=== PATIENT | female | born 1940 | race Caucasian/White ===

== ENCOUNTER 2020-02-05 15:43 | Inpatient (IN) ==
[2020-02-05 19:41] LABS: Basophils % 0.5 % (0.0-0.8); Hematocrit 41.1 VOL% (35.7-47.0); Hemoglobin 13.6 GM/DL (12.0-16.0); Immature Granulocytes % 0.5 %; Immature Granulocytes Absolute 0.03 #; Lymphocytes % 17.2 % (21.3-54.2); Mean Corpuscular HGB Conc 33.1 GM/DL (32-36); Mean Corpuscular Volume 88.2 FL (87-102); Mean Platelet Volume 11.3 FL (9.6-12.0); Monocytes % 8.8 % (1.7-12.7); Platelet Count 142 T/CUMM (130-400); Red Blood Count 4.66 MC/CUMM (3.8-5.5); Red Cell Distribution Width 13.4 % (9.3-17.3); White Blood Count 5.8 T/CUMM (4-12)
[2020-02-05 19:53] LABS: Calcium 8.5 MG/DL (8.5-10.1); Osmolality,Calculated 270.5 MOS/KG (273-304)
[2020-02-05] MEDS ORDERED: cefTRIAXone 1,000 MG in SODIUM CHLORIDE 0.9% 100 ML IV STA (20:09)
[2020-02-05] MEDS ORDERED: AZITHROMYCIN INJ 500 MG in SODIUM CHLORIDE 0.9% 250 ML IV STA (20:09)
[2020-02-05] MEDS ORDERED: cefTRIAXone 1,000 MG VIAL ONE (20:11)
[2020-02-05] MEDS ORDERED: diphenhydrAMINE CAP 25 MG CAPSULE PO PRN (22:01)
[2020-02-05] MEDS ORDERED: GLUCAGON 1 MG VIAL IM PRN (22:01)
[2020-02-05] MEDS ORDERED: DEXTROSE 50% 25 GM/50 ML VIAL IV PRN (22:01)
[2020-02-05] MEDS ORDERED: ACETAMINOPHEN 325 MG TABLET PO PRN (22:01)
[2020-02-05] MEDS ORDERED: guaiFENesin/DM ER 600-30 MG TABLET PO PRN (22:01)
[2020-02-05] MEDS ORDERED: hydrALAZINE 20 MG/1 ML VIAL IV PRN (22:01)
[2020-02-05] MEDS ORDERED: NICOTINE 21 MG/24 HR PATCH TRANSDERM PRN (22:01)
[2020-02-05] MEDS ORDERED: ALUMINUM/MAGNES/SIMETH MAX STR 30 ML UDCUP PO PRN (22:01)
[2020-02-05] MEDS ORDERED: BISACODYL 5 MG TABLET PO PRN (22:01)
[2020-02-05] MEDS ORDERED: DOCUSATE SODIUM 100 MG CAPSULE PO PRN (22:01)
[2020-02-05] MEDS ORDERED: SIMETHICONE CHEW 125 MG TABLET PO PRN (22:01)
[2020-02-05] MEDS ORDERED: AZITHROMYCIN INJ 500 MG in SODIUM CHLORIDE 0.9% 250 ML IV SCH (22:30)
[2020-02-05] MEDS ORDERED: ALBUTEROL INHALER 18 GM INH PRN (22:35)
[2020-02-06] MEDS: SODIUM CHLORIDE 0.9% 1,000 ML IV SCH ×2 (02:26→14:42)
[2020-02-06] MEDS: ALBUTEROL INHALER 18 GM INH SCH ×5 (02:27→20:52)
[2020-02-06 05:42] LABS: Basophils % 0.5 % (0.0-0.8); Eosinophils # 0.1 10*3/uL (0.0-0.87); Eosinophils % 2.2 % (0.00-10.9); Hematocrit 39.8 VOL% (35.7-47.0); Hemoglobin 12.9 GM/DL (12.0-16.0); Immature Granulocytes % 0.5 %; Immature Granulocytes Absolute 0.03 #; Lymphocytes # 1.6 10*3/uL (1.4-4.0); Lymphocytes % 26.9 % (21.3-54.2); Mean Corpuscular HGB Conc 32.4 GM/DL (32-36); Mean Corpuscular Volume 90.2 FL (87-102); Mean Platelet Volume 11.3 FL (9.6-12.0); Monocytes % 11.9 % (1.7-12.7); Platelet Count 123 T/CUMM (130-400); Red Blood Count 4.41 MC/CUMM (3.8-5.5); Red Cell Distribution Width 13.2 % (9.3-17.3)
[2020-02-06 05:59] LABS: Calcium 8.5 MG/DL (8.5-10.1); Osmolality,Calculated 278.7 MOS/KG (273-304)
[2020-02-06 06:02] LABS: Hypochromasia Slight; Microcytosis Slight
[2020-02-06 06:03] LABS: Platelet Estimate Normal
[2020-02-06] MEDS: DEXAMETHASONE 10 MG/1 ML VIAL IV SCH (09:05)
[2020-02-06] MEDS: HEPARIN 5,000 UNIT/1 ML VIAL SUBCUT SCH ×2 (09:05→20:51)
[2020-02-06] MEDS: AZITHROMYCIN 250 MG TABLET PO SCH (09:06)
[2020-02-06] MEDS: PANTOPRAZOLE 40 MG TABLET PO SCH (09:06)
[2020-02-06] MEDS: amLODIPine 5 MG TABLET PO SCH ×2 (09:06→20:49)
[2020-02-06] MEDS: ESCITALOPRAM 10 MG TABLET PO SCH (09:06)
[2020-02-06] MEDS ORDERED: CETIRIZINE 10 MG TABLET PO PRN ×2 (09:19)
[2020-02-06] MEDS ORDERED: guaiFENesin 200 MG/10 ML UDCUP PO PRN (09:19)
[2020-02-06] MEDS: CETIRIZINE 10 MG TABLET PO SCH (10:47)
[2020-02-06] MEDS: ASCORBIC ACID 500 MG TABLET PO SCH ×2 (10:47→20:50)
[2020-02-06] MEDS: ZINC SULFATE 220 MG CAPSULE PO SCH (10:47)
[2020-02-06] MEDS ORDERED: METOPROLOL TARTRATE 25 MG TABLET PO SCH (19:00)
[2020-02-06] MEDS: cefTRIAXone 1,000 MG in SYRINGE 1 EACH IV SCH (20:49)
[2020-02-06] MEDS: ASPIRIN EC 81 MG TABLET PO SCH (20:49)
[2020-02-06] MEDS: SIMVASTATIN 20 MG TABLET PO SCH (20:50)
[2020-02-07] MEDS: guaiFENesin 200 MG/10 ML UDCUP PO PRN ×3 (00:37→20:26)
[2020-02-07] MEDS: ALBUTEROL INHALER 18 GM INH SCH ×6 (00:40→20:25)
[2020-02-07 06:32] LABS: Basophils % 0.1 % (0.0-0.8); Hematocrit 38.9 VOL% (35.7-47.0); Hemoglobin 12.5 GM/DL (12.0-16.0); Immature Granulocytes % 0.3 %; Immature Granulocytes Absolute 0.03 #; Lymphocytes % 11.2 % (21.3-54.2); Mean Corpuscular HGB Conc 32.1 GM/DL (32-36); Mean Corpuscular Volume 89.6 FL (87-102); Mean Platelet Volume 11.8 FL (9.6-12.0); Monocytes % 5.6 % (1.7-12.7); Neutrophils % 82.8 % (38.7-73.9); Platelet Count 118 T/CUMM (130-400); Red Blood Count 4.34 MC/CUMM (3.8-5.5); Red Cell Distribution Width 12.7 % (9.3-17.3); White Blood Count 8.6 T/CUMM (4-12)
[2020-02-07] MEDS: SODIUM CHLORIDE 0.9% 1,000 ML IV SCH (06:56)
[2020-02-07 07:00] LABS: Albumin 3.2 G/DL (3.4-5.0); Bilirubin,Total 0.8 MG/DL (0.2-1.0); Calcium 8.3 MG/DL (8.5-10.1); Osmolality,Calculated 275.7 MOS/KG (273-304); Total Protein 6.6 G/DL (6.4-8.3)
[2020-02-07 07:01] LABS: Risk Ratio 2.69; VLDL CHOLESTEROL 28.6 MG/DL
[2020-02-07 07:09] LABS: Hypochromasia Slight; Microcytosis Slight; Ovalocytes Slight
[2020-02-07] MEDS: ONDANSETRON 4 MG/2 ML VIAL IV PRN (08:16)
[2020-02-07] MEDS: HEPARIN 5,000 UNIT/1 ML VIAL SUBCUT SCH (08:16)
[2020-02-07] MEDS: DEXAMETHASONE 10 MG/1 ML VIAL IV SCH (08:16)
[2020-02-07] MEDS: AZITHROMYCIN 250 MG TABLET PO SCH (08:17)
[2020-02-07] MEDS: ESCITALOPRAM 10 MG TABLET PO SCH (08:18)
[2020-02-07] MEDS: ZINC SULFATE 220 MG CAPSULE PO SCH (08:18)
[2020-02-07] MEDS: PANTOPRAZOLE 40 MG TABLET PO SCH (08:18)
[2020-02-07] MEDS: amLODIPine 5 MG TABLET PO SCH ×2 (08:18→20:24)
[2020-02-07] MEDS: ASCORBIC ACID 500 MG TABLET PO SCH ×2 (08:18→20:24)
[2020-02-07] MEDS: CETIRIZINE 10 MG TABLET PO SCH (08:18)
[2020-02-07] MEDS ORDERED: FLUTICASONE 50 MCG NASAL SPRAY 16 GM BOTTLE BOTH NARES PRN (10:28)
[2020-02-07] MEDS: LEVOTHYROXINE 88 MCG TABLET PO SCH (12:55)
[2020-02-07] MEDS: MELOXICAM 7.5 MG TABLET PO SCH (12:55)
[2020-02-07] MEDS: MONTELUKAST 10 MG TABLET PO SCH (12:55)
[2020-02-07] MEDS: METOPROLOL TARTRATE 25 MG TABLET PO SCH ×2 (12:55→20:24)
[2020-02-07] MEDS: AZELASTINE NASAL 137 MCG/SPRAY 30 ML BOTTLE BOTH NARES SCH ×2 (12:55→20:40)
[2020-02-07] MEDS: ASPIRIN EC 81 MG TABLET PO SCH (20:24)
[2020-02-07] MEDS: cefTRIAXone 1,000 MG in SYRINGE 1 EACH IV SCH (20:25)
[2020-02-07] MEDS: SIMVASTATIN 20 MG TABLET PO SCH (20:25)
[2020-02-07] MEDS: ENOXAPARIN 40 MG/0.4 ML SYRINGE SUBCUT SCH (20:26)
[2020-02-08] MEDS: ALBUTEROL INHALER 18 GM INH SCH ×7 (00:27→23:10)
[2020-02-08] MEDS: guaiFENesin 200 MG/10 ML UDCUP PO PRN (01:15)
[2020-02-08 05:56] LABS: Basophils % 0.1 % (0.0-0.8); Hematocrit 39.9 VOL% (35.7-47.0); Hemoglobin 13.2 GM/DL (12.0-16.0); Immature Granulocytes % 0.6 %; Immature Granulocytes Absolute 0.06 #; Lymphocytes # 1.2 10*3/uL (1.4-4.0); Lymphocytes % 12.1 % (21.3-54.2); Mean Corpuscular HGB Conc 33.1 GM/DL (32-36); Mean Corpuscular Volume 87.7 FL (87-102); Monocytes % 5.7 % (1.7-12.7); Neutrophils % 81.5 % (38.7-73.9); Platelet Count 159 T/CUMM (130-400); Red Blood Count 4.55 MC/CUMM (3.8-5.5); Red Cell Distribution Width 12.9 % (9.3-17.3); White Blood Count 9.8 T/CUMM (4-12)
[2020-02-08 06:13] LABS: Albumin 3.4 G/DL (3.4-5.0); Bilirubin,Total 0.9 MG/DL (0.2-1.0); Calcium 8.8 MG/DL (8.5-10.1); Osmolality,Calculated 276.7 MOS/KG (273-304); Total Protein 7.2 G/DL (6.4-8.3)
[2020-02-08] MEDS: ONDANSETRON 4 MG/2 ML VIAL IV PRN (08:47)
[2020-02-08] MEDS: PANTOPRAZOLE 40 MG TABLET PO SCH (08:47)
[2020-02-08] MEDS: LEVOTHYROXINE 88 MCG TABLET PO SCH (08:47)
[2020-02-08] MEDS: MELOXICAM 7.5 MG TABLET PO SCH (08:47)
[2020-02-08] MEDS: MONTELUKAST 10 MG TABLET PO SCH (08:48)
[2020-02-08] MEDS: ZINC SULFATE 220 MG CAPSULE PO SCH (08:48)
[2020-02-08] MEDS: AZELASTINE NASAL 137 MCG/SPRAY 30 ML BOTTLE BOTH NARES SCH ×2 (08:48→20:31)
[2020-02-08] MEDS: AZITHROMYCIN 250 MG TABLET PO SCH (08:48)
[2020-02-08] MEDS: amLODIPine 5 MG TABLET PO SCH ×2 (08:48→20:29)
[2020-02-08] MEDS: ASCORBIC ACID 500 MG TABLET PO SCH ×2 (08:48→20:29)
[2020-02-08] MEDS: ESCITALOPRAM 10 MG TABLET PO SCH (08:48)
[2020-02-08] MEDS: DEXAMETHASONE 10 MG/1 ML VIAL IV SCH (08:49)
[2020-02-08] MEDS: CETIRIZINE 10 MG TABLET PO SCH (08:49)
[2020-02-08] MEDS: METOPROLOL TARTRATE 25 MG TABLET PO SCH ×2 (08:50→20:29)
[2020-02-08] MEDS: methylPREDNISolone SOD SUC 40 MG/1 ML VIAL IV SCH ×3 (12:18→23:10)
[2020-02-08] MEDS: SIMVASTATIN 20 MG TABLET PO SCH (20:29)
[2020-02-08] MEDS: ASPIRIN EC 81 MG TABLET PO SCH (20:29)
[2020-02-08] MEDS: cefTRIAXone 1,000 MG in SYRINGE 1 EACH IV SCH (20:32)
[2020-02-08] MEDS: ENOXAPARIN 40 MG/0.4 ML SYRINGE SUBCUT SCH (20:33)
[2020-02-09] MEDS: ALBUTEROL INHALER 18 GM INH SCH ×6 (03:02→23:54)
[2020-02-09] MEDS: methylPREDNISolone SOD SUC 40 MG/1 ML VIAL IV SCH ×4 (06:05→22:16)
[2020-02-09 06:36] LABS: Basophils % 0.1 % (0.0-0.8); Hematocrit 36.1 VOL% (35.7-47.0); Hemoglobin 12.1 GM/DL (12.0-16.0); Immature Granulocytes % 0.8 %; Immature Granulocytes Absolute 0.08 #; Lymphocytes # 0.9 10*3/uL (1.4-4.0); Mean Corpuscular HGB Conc 33.5 GM/DL (32-36); Mean Corpuscular Volume 86.4 FL (87-102); Mean Platelet Volume 11.6 FL (9.6-12.0); Neutrophils % 86.1 % (38.7-73.9); Platelet Count 160 T/CUMM (130-400); Red Blood Count 4.18 MC/CUMM (3.8-5.5); Red Cell Distribution Width 12.9 % (9.3-17.3); White Blood Count 9.4 T/CUMM (4-12)
[2020-02-09 07:01] LABS: Albumin 2.8 G/DL (3.4-5.0); Bilirubin,Direct 0.14 MG/DL (0.0-0.20); Bilirubin,Total 1.1 MG/DL (0.2-1.0); Calcium 8.6 MG/DL (8.5-10.1); Ferritin 232.4 ng/ml (8-252); Total Protein 6.5 G/DL (6.4-8.3)
[2020-02-09] MEDS: AZITHROMYCIN 250 MG TABLET PO SCH (09:57)
[2020-02-09] MEDS: PANTOPRAZOLE 40 MG TABLET PO SCH (09:58)
[2020-02-09] MEDS: LEVOTHYROXINE 88 MCG TABLET PO SCH (09:58)
[2020-02-09] MEDS: MONTELUKAST 10 MG TABLET PO SCH (09:58)
[2020-02-09] MEDS: AZELASTINE NASAL 137 MCG/SPRAY 30 ML BOTTLE BOTH NARES SCH ×2 (09:58→22:13)
[2020-02-09] MEDS: MELOXICAM 7.5 MG TABLET PO SCH (09:58)
[2020-02-09] MEDS: METOPROLOL TARTRATE 25 MG TABLET PO SCH ×2 (09:58→21:55)
[2020-02-09] MEDS: amLODIPine 5 MG TABLET PO SCH ×2 (09:58→21:55)
[2020-02-09] MEDS: ZINC SULFATE 220 MG CAPSULE PO SCH (09:58)
[2020-02-09] MEDS: ASCORBIC ACID 500 MG TABLET PO SCH ×2 (09:58→21:55)
[2020-02-09] MEDS: CETIRIZINE 10 MG TABLET PO SCH (09:58)
[2020-02-09] MEDS: ESCITALOPRAM 10 MG TABLET PO SCH (09:58)
[2020-02-09] MEDS: guaiFENesin 200 MG/10 ML UDCUP PO PRN (10:51)
[2020-02-09 11:18] LABS: Bacteria,Urine Occasional /HPF (Few); Bilirubin,Urine Negative (Negative); Blood, Urine Negative (Negative); Glucose,Urine (UA) 50 mg/dL (Negative); Hyaline Casts,Urine 3 /LPF (0-3); Ketones,Urine Negative (Negative); Mucus,Urine Occasional /LPF (Occasional); Nitrite,Urine Negative (Negative); Protein,Urine 30 MG/DL; Squamous Epithelial Cell,Urine Occasional /HPF (0-10); Urine Appearance CLEAR (Clear); Urine Color Yellow (Yellow); Urine Specific Gravity 1.019 (1.001-1.035); Urine Urobilinogen < 2.0 EU/DL (0.2-1.0); WBC,Urine <1 /HPF (0-6)
[2020-02-09] MEDS: INSULIN LISPRO 100 UNIT/ML SUBCUT SCH ×3 (12:26→22:13)
[2020-02-09] MEDS: AZITHROMYCIN INJ 500 MG in SODIUM CHLORIDE 0.9% 250 ML IV SCH (12:26)
[2020-02-09] MEDS ORDERED: SODIUM CHLORIDE 0.9% 1,000 ML IV PRN (12:48)
[2020-02-09] MEDS ORDERED: REMDESIVIR 200 MG in SODIUM CHLORIDE 0.9% 210 ML IV ONE (13:30)
[2020-02-09] MEDS: ONDANSETRON 4 MG/2 ML VIAL IV PRN (18:04)
[2020-02-09] MEDS: cefTRIAXone 1,000 MG in SYRINGE 1 EACH IV SCH (20:55)
[2020-02-09] MEDS: ASPIRIN EC 81 MG TABLET PO SCH (21:55)
[2020-02-09] MEDS: SIMVASTATIN 20 MG TABLET PO SCH (21:55)
[2020-02-09] MEDS: ENOXAPARIN 40 MG/0.4 ML SYRINGE SUBCUT SCH (22:14)
[2020-02-10] MEDS: ALBUTEROL INHALER 18 GM INH SCH ×6 (02:42→22:25)
[2020-02-10] MEDS: methylPREDNISolone SOD SUC 40 MG/1 ML VIAL IV SCH ×3 (05:10→20:55)
[2020-02-10] MEDS: INSULIN LISPRO 100 UNIT/ML SUBCUT SCH ×4 (08:54→20:55)
[2020-02-10] MEDS: ASCORBIC ACID 500 MG TABLET PO SCH ×2 (08:54→20:55)
[2020-02-10] MEDS: REMDESIVIR 100 MG in SODIUM CHLORIDE 0.9% 230 ML IV SCH (08:54)
[2020-02-10] MEDS: LEVOTHYROXINE 88 MCG TABLET PO SCH (08:54)
[2020-02-10] MEDS: ZINC SULFATE 220 MG CAPSULE PO SCH (08:55)
[2020-02-10] MEDS: ESCITALOPRAM 10 MG TABLET PO SCH (08:55)
[2020-02-10] MEDS: METOPROLOL TARTRATE 25 MG TABLET PO SCH ×2 (08:55→20:55)
[2020-02-10] MEDS: MELOXICAM 7.5 MG TABLET PO SCH (08:55)
[2020-02-10] MEDS: amLODIPine 5 MG TABLET PO SCH ×2 (08:55→20:55)
[2020-02-10] MEDS: AZELASTINE NASAL 137 MCG/SPRAY 30 ML BOTTLE BOTH NARES SCH ×2 (08:55→20:55)
[2020-02-10] MEDS: MONTELUKAST 10 MG TABLET PO SCH (08:55)
[2020-02-10] MEDS: PANTOPRAZOLE 40 MG TABLET PO SCH (08:55)
[2020-02-10] MEDS: CETIRIZINE 10 MG TABLET PO SCH (08:55)
[2020-02-10] MEDS: AZITHROMYCIN INJ 500 MG in SODIUM CHLORIDE 0.9% 250 ML IV SCH (12:26)
[2020-02-10] MEDS: ONDANSETRON 4 MG/2 ML VIAL IV PRN (14:25)
[2020-02-10] MEDS: ENOXAPARIN 40 MG/0.4 ML SYRINGE SUBCUT SCH (20:55)
[2020-02-10] MEDS: ZALEPLON 5 MG CAPSULE PO PRN (20:55)
[2020-02-10] MEDS: SIMVASTATIN 20 MG TABLET PO SCH (20:55)
[2020-02-10] MEDS: ASPIRIN EC 81 MG TABLET PO SCH (20:55)
[2020-02-10] MEDS: cefTRIAXone 1,000 MG in SYRINGE 1 EACH IV SCH (22:23)
[2020-02-11] MEDS: ALBUTEROL INHALER 18 GM INH SCH ×5 (03:44→18:06)
[2020-02-11 05:21] LABS: Basophils % 0.1 % (0.0-0.8); Hematocrit 37.1 VOL% (35.7-47.0); Hemoglobin 11.9 GM/DL (12.0-16.0); Immature Granulocytes % 1.3 %; Immature Granulocytes Absolute 0.15 #; Lymphocytes # 0.7 10*3/uL (1.4-4.0); Lymphocytes % 5.8 % (21.3-54.2); Mean Corpuscular HGB Conc 32.1 GM/DL (32-36); Mean Corpuscular Volume 88.5 FL (87-102); Mean Platelet Volume 11.8 FL (9.6-12.0); Neutrophils % 88.8 % (38.7-73.9); Platelet Count 189 T/CUMM (130-400); Red Blood Count 4.19 MC/CUMM (3.8-5.5); Red Cell Distribution Width 12.9 % (9.3-17.3); White Blood Count 11.1 T/CUMM (4-12)
[2020-02-11] MEDS: methylPREDNISolone SOD SUC 40 MG/1 ML VIAL IV SCH ×3 (05:46→21:06)
[2020-02-11 05:55] LABS: Albumin 2.6 G/DL (3.4-5.0); Bilirubin,Direct 0.13 MG/DL (0.0-0.20); Bilirubin,Indirect 0.4 MG/DL (0.0-1.0); Bilirubin,Total 0.5 MG/DL (0.2-1.0); Calcium 8.4 MG/DL (8.5-10.1); Ferritin 217.9 ng/ml (8-252); Total Protein 6.2 G/DL (6.4-8.3)
[2020-02-11] MEDS: INSULIN LISPRO 100 UNIT/ML SUBCUT SCH ×4 (08:42→21:06)
[2020-02-11] MEDS: REMDESIVIR 100 MG in SODIUM CHLORIDE 0.9% 230 ML IV SCH (08:42)
[2020-02-11] MEDS: AZELASTINE NASAL 137 MCG/SPRAY 30 ML BOTTLE BOTH NARES SCH ×2 (08:42→21:08)
[2020-02-11] MEDS: MONTELUKAST 10 MG TABLET PO SCH (08:43)
[2020-02-11] MEDS: PANTOPRAZOLE 40 MG TABLET PO SCH (08:43)
[2020-02-11] MEDS: amLODIPine 5 MG TABLET PO SCH ×2 (08:43→21:07)
[2020-02-11] MEDS: ESCITALOPRAM 10 MG TABLET PO SCH (08:43)
[2020-02-11] MEDS: ZINC SULFATE 220 MG CAPSULE PO SCH (08:43)
[2020-02-11] MEDS: METOPROLOL TARTRATE 25 MG TABLET PO SCH ×2 (08:43→21:07)
[2020-02-11] MEDS: MELOXICAM 7.5 MG TABLET PO SCH (08:43)
[2020-02-11] MEDS: CETIRIZINE 10 MG TABLET PO SCH (08:43)
[2020-02-11] MEDS: LEVOTHYROXINE 88 MCG TABLET PO SCH (08:43)
[2020-02-11] MEDS: ASCORBIC ACID 500 MG TABLET PO SCH ×2 (08:43→21:07)
[2020-02-11] MEDS: FUROSEMIDE 40 MG/4 ML VIAL IV SCH ×2 (10:45→18:12)
[2020-02-11] MEDS: AZITHROMYCIN INJ 500 MG in SODIUM CHLORIDE 0.9% 250 ML IV SCH (12:08)
[2020-02-11] MEDS: ONDANSETRON 4 MG/2 ML VIAL IV PRN ×2 (12:09→21:06)
[2020-02-11] MEDS ORDERED: FUROSEMIDE 40 MG/4 ML VIAL IV SCH (18:00)
[2020-02-11] MEDS: cefTRIAXone 1,000 MG in SYRINGE 1 EACH IV SCH (21:06)
[2020-02-11] MEDS: ASPIRIN EC 81 MG TABLET PO SCH (21:07)
[2020-02-11] MEDS: SIMVASTATIN 20 MG TABLET PO SCH (21:07)
[2020-02-11] MEDS: ENOXAPARIN 40 MG/0.4 ML SYRINGE SUBCUT SCH (21:07)
[2020-02-12] MEDS: ALBUTEROL INHALER 18 GM INH SCH ×7 (00:21→22:55)
[2020-02-12] MEDS: methylPREDNISolone SOD SUC 40 MG/1 ML VIAL IV SCH ×3 (05:29→21:28)
[2020-02-12 07:13] LABS: Basophils % 0.1 % (0.0-0.8); Hematocrit 37.9 VOL% (35.7-47.0); Hemoglobin 12.6 GM/DL (12.0-16.0); Immature Granulocytes % 1.5 %; Immature Granulocytes Absolute 0.13 #; Lymphocytes # 0.7 10*3/uL (1.4-4.0); Lymphocytes % 8.3 % (21.3-54.2); Mean Corpuscular HGB Conc 33.2 GM/DL (32-36); Mean Corpuscular Volume 86.9 FL (87-102); Mean Platelet Volume 11.7 FL (9.6-12.0); Monocytes % 4.5 % (1.7-12.7); Neutrophils % 85.6 % (38.7-73.9); Platelet Count 223 T/CUMM (130-400); Red Blood Count 4.36 MC/CUMM (3.8-5.5); Red Cell Distribution Width 12.4 % (9.3-17.3); White Blood Count 8.7 T/CUMM (4-12)
[2020-02-12 07:51] LABS: Albumin 2.5 G/DL (3.4-5.0); Bilirubin,Direct 0.15 MG/DL (0.0-0.20); Bilirubin,Indirect 0.6 MG/DL (0.0-1.0); Bilirubin,Total 0.7 MG/DL (0.2-1.0); Ferritin 181.5 ng/ml (8-252); Osmolality,Calculated 280.1 MOS/KG (273-304); Total Protein 6.1 G/DL (6.4-8.3)
[2020-02-12] MEDS: MELOXICAM 7.5 MG TABLET PO SCH (08:34)
[2020-02-12] MEDS: ZINC SULFATE 220 MG CAPSULE PO SCH (08:34)
[2020-02-12] MEDS: CETIRIZINE 10 MG TABLET PO SCH (08:34)
[2020-02-12] MEDS: ASCORBIC ACID 500 MG TABLET PO SCH ×2 (08:34→21:28)
[2020-02-12] MEDS: METOPROLOL TARTRATE 25 MG TABLET PO SCH ×2 (08:35→21:28)
[2020-02-12] MEDS: ESCITALOPRAM 10 MG TABLET PO SCH (08:35)
[2020-02-12] MEDS: amLODIPine 5 MG TABLET PO SCH ×2 (08:35→21:28)
[2020-02-12] MEDS: MONTELUKAST 10 MG TABLET PO SCH (08:36)
[2020-02-12] MEDS: INSULIN LISPRO 100 UNIT/ML SUBCUT SCH ×4 (08:36→21:28)
[2020-02-12] MEDS: LEVOTHYROXINE 88 MCG TABLET PO SCH (08:36)
[2020-02-12] MEDS: PANTOPRAZOLE 40 MG TABLET PO SCH (08:36)
[2020-02-12] MEDS: AZELASTINE NASAL 137 MCG/SPRAY 30 ML BOTTLE BOTH NARES SCH ×2 (08:38→21:28)
[2020-02-12] MEDS: ONDANSETRON 4 MG/2 ML VIAL IV PRN ×2 (09:25→16:46)
[2020-02-12] MEDS: REMDESIVIR 100 MG in SODIUM CHLORIDE 0.9% 230 ML IV SCH (09:25)
[2020-02-12] MEDS: AZITHROMYCIN INJ 500 MG in SODIUM CHLORIDE 0.9% 250 ML IV SCH (11:24)
[2020-02-12] MEDS: CALCIUM CARBONATE CHEW 500 MG TABLET PO PRN (16:46)
[2020-02-12] MEDS: ENOXAPARIN 40 MG/0.4 ML SYRINGE SUBCUT SCH (21:28)
[2020-02-12] MEDS: cefTRIAXone 1,000 MG in SYRINGE 1 EACH IV SCH (21:28)
[2020-02-12] MEDS: ASPIRIN EC 81 MG TABLET PO SCH (21:28)
[2020-02-12] MEDS: ZALEPLON 5 MG CAPSULE PO PRN (21:28)
[2020-02-12] MEDS: SIMVASTATIN 20 MG TABLET PO SCH (21:28)
[2020-02-13] MEDS: ALBUTEROL INHALER 18 GM INH SCH ×6 (03:03→22:23)
[2020-02-13] MEDS: methylPREDNISolone SOD SUC 40 MG/1 ML VIAL IV SCH ×3 (06:30→21:00)
[2020-02-13] MEDS: REMDESIVIR 100 MG in SODIUM CHLORIDE 0.9% 230 ML IV SCH (09:32)
[2020-02-13] MEDS: LEVOTHYROXINE 88 MCG TABLET PO SCH (09:33)
[2020-02-13] MEDS: METOPROLOL TARTRATE 25 MG TABLET PO SCH ×2 (09:33→21:00)
[2020-02-13] MEDS: MELOXICAM 7.5 MG TABLET PO SCH (09:33)
[2020-02-13] MEDS: ZINC SULFATE 220 MG CAPSULE PO SCH (09:33)
[2020-02-13] MEDS: ASCORBIC ACID 500 MG TABLET PO SCH ×2 (09:33→20:59)
[2020-02-13] MEDS: PANTOPRAZOLE 40 MG TABLET PO SCH (09:33)
[2020-02-13] MEDS: MONTELUKAST 10 MG TABLET PO SCH (09:33)
[2020-02-13] MEDS: CETIRIZINE 10 MG TABLET PO SCH (09:33)
[2020-02-13] MEDS: amLODIPine 5 MG TABLET PO SCH ×2 (09:33→20:59)
[2020-02-13] MEDS: AZELASTINE NASAL 137 MCG/SPRAY 30 ML BOTTLE BOTH NARES SCH ×2 (09:34→21:00)
[2020-02-13] MEDS: INSULIN LISPRO 100 UNIT/ML SUBCUT SCH ×4 (09:34→20:58)
[2020-02-13] MEDS: ESCITALOPRAM 10 MG TABLET PO SCH (09:34)
[2020-02-13] MEDS: AZITHROMYCIN INJ 500 MG in SODIUM CHLORIDE 0.9% 250 ML IV SCH (13:41)
[2020-02-13] MEDS: cefTRIAXone 1,000 MG in SYRINGE 1 EACH IV SCH (20:56)
[2020-02-13] MEDS: ENOXAPARIN 40 MG/0.4 ML SYRINGE SUBCUT SCH (20:57)
[2020-02-13] MEDS: CALCIUM CARBONATE CHEW 500 MG TABLET PO PRN (20:58)
[2020-02-13] MEDS: ASPIRIN EC 81 MG TABLET PO SCH (20:59)
[2020-02-13] MEDS: SIMVASTATIN 20 MG TABLET PO SCH (20:59)
[2020-02-13] MEDS: ZALEPLON 5 MG CAPSULE PO PRN (21:00)
[2020-02-14] MEDS: ALBUTEROL INHALER 18 GM INH SCH ×6 (04:35→22:50)
[2020-02-14] MEDS: methylPREDNISolone SOD SUC 40 MG/1 ML VIAL IV SCH ×3 (05:47→21:02)
[2020-02-14 06:35] LABS: Basophils % 0.2 % (0.0-0.8); Hematocrit 37.8 VOL% (35.7-47.0); Hemoglobin 12.8 GM/DL (12.0-16.0); Immature Granulocytes % 1.6 %; Immature Granulocytes Absolute 0.21 #; Lymphocytes # 0.6 10*3/uL (1.4-4.0); Lymphocytes % 4.2 % (21.3-54.2); Mean Corpuscular HGB Conc 33.9 GM/DL (32-36); Mean Corpuscular Volume 85.5 FL (87-102); Mean Platelet Volume 11.3 FL (9.6-12.0); Monocytes % 3.2 % (1.7-12.7); Neutrophils % 90.8 % (38.7-73.9); Platelet Count 288 T/CUMM (130-400); Red Blood Count 4.42 MC/CUMM (3.8-5.5); Red Cell Distribution Width 12.2 % (9.3-17.3); White Blood Count 13.2 T/CUMM (4-12)
[2020-02-14 07:04] LABS: Calcium 8.2 MG/DL (8.5-10.1); Osmolality,Calculated 284.8 MOS/KG (273-304)
[2020-02-14 07:43] LABS: Lymphocytes 5 % (20-55); Microcytosis Slight; Nucleated Red Blood Cells 1 (0-5); Platelet Estimate Normal; Segmented Neutrophils 90 % (50-85); Total Cells Counted 100
[2020-02-14 07:47] LABS: Polychromasia Slight
[2020-02-14] MEDS: INSULIN LISPRO 100 UNIT/ML SUBCUT SCH ×4 (09:08→20:55)
[2020-02-14] MEDS: MELOXICAM 7.5 MG TABLET PO SCH (09:08)
[2020-02-14] MEDS: METOPROLOL TARTRATE 25 MG TABLET PO SCH ×2 (09:09→20:57)
[2020-02-14] MEDS: ASCORBIC ACID 500 MG TABLET PO SCH ×2 (09:10→20:55)
[2020-02-14] MEDS: LEVOTHYROXINE 88 MCG TABLET PO SCH (09:10)
[2020-02-14] MEDS: ZINC SULFATE 220 MG CAPSULE PO SCH (09:11)
[2020-02-14] MEDS: AZELASTINE NASAL 137 MCG/SPRAY 30 ML BOTTLE BOTH NARES SCH ×2 (09:11→20:55)
[2020-02-14] MEDS: MONTELUKAST 10 MG TABLET PO SCH (09:11)
[2020-02-14] MEDS: ESCITALOPRAM 10 MG TABLET PO SCH (09:11)
[2020-02-14] MEDS: PANTOPRAZOLE 40 MG TABLET PO SCH (09:11)
[2020-02-14] MEDS: CETIRIZINE 10 MG TABLET PO SCH (09:11)
[2020-02-14] MEDS: amLODIPine 5 MG TABLET PO SCH ×2 (09:11→20:56)
[2020-02-14] MEDS: AZITHROMYCIN INJ 500 MG in SODIUM CHLORIDE 0.9% 250 ML IV SCH (11:45)
[2020-02-14] MEDS: SIMVASTATIN 20 MG TABLET PO SCH (20:55)
[2020-02-14] MEDS: ENOXAPARIN 40 MG/0.4 ML SYRINGE SUBCUT SCH (20:55)
[2020-02-14] MEDS: ASPIRIN EC 81 MG TABLET PO SCH (20:55)
[2020-02-15] MEDS: ALBUTEROL INHALER 18 GM INH SCH ×6 (02:28→23:48)
[2020-02-15] MEDS: methylPREDNISolone SOD SUC 40 MG/1 ML VIAL IV SCH ×3 (06:03→21:23)
[2020-02-15 06:06] LABS: Basophils % 0.2 % (0.0-0.8); Hematocrit 37.2 VOL% (35.7-47.0); Hemoglobin 12.6 GM/DL (12.0-16.0); Immature Granulocytes % 2.5 %; Immature Granulocytes Absolute 0.27 #; Lymphocytes # 0.4 10*3/uL (1.4-4.0); Lymphocytes % 3.5 % (21.3-54.2); Mean Corpuscular HGB Conc 33.9 GM/DL (32-36); Mean Corpuscular Volume 85.7 FL (87-102); Mean Platelet Volume 11.1 FL (9.6-12.0); Monocytes % 3.3 % (1.7-12.7); NRBC # 0.02 10*3/uL; Neutrophils % 90.5 % (38.7-73.9); Platelet Count 274 T/CUMM (130-400); Red Blood Count 4.34 MC/CUMM (3.8-5.5); Red Cell Distribution Width 12.1 % (9.3-17.3)
[2020-02-15 06:44] LABS: Band Neutrophils 1 % (0-10); Hypochromasia 1+; Lymphocytes 5 % (20-55); Microcytosis 1+; Platelet Estimate Adequate; Segmented Neutrophils 92 % (50-85); Total Cells Counted 100
[2020-02-15 06:53] LABS: Calcium 8.4 MG/DL (8.5-10.1)
[2020-02-15] MEDS: INSULIN LISPRO 100 UNIT/ML SUBCUT SCH ×3 (10:11→18:04)
[2020-02-15] MEDS: AZELASTINE NASAL 137 MCG/SPRAY 30 ML BOTTLE BOTH NARES SCH ×2 (10:12→21:23)
[2020-02-15] MEDS: METOPROLOL TARTRATE 25 MG TABLET PO SCH ×2 (10:13→21:23)
[2020-02-15] MEDS: amLODIPine 5 MG TABLET PO SCH ×2 (10:13→21:23)
[2020-02-15] MEDS: MONTELUKAST 10 MG TABLET PO SCH (10:13)
[2020-02-15] MEDS: ESCITALOPRAM 10 MG TABLET PO SCH (10:13)
[2020-02-15] MEDS: PANTOPRAZOLE 40 MG TABLET PO SCH (10:13)
[2020-02-15] MEDS: MELOXICAM 7.5 MG TABLET PO SCH (10:13)
[2020-02-15] MEDS: ASCORBIC ACID 500 MG TABLET PO SCH ×2 (10:14→21:23)
[2020-02-15] MEDS: LEVOTHYROXINE 88 MCG TABLET PO SCH (10:14)
[2020-02-15] MEDS: CETIRIZINE 10 MG TABLET PO SCH (10:14)
[2020-02-15] MEDS: ZINC SULFATE 220 MG CAPSULE PO SCH (10:14)
[2020-02-15] MEDS: AZITHROMYCIN INJ 500 MG in SODIUM CHLORIDE 0.9% 250 ML IV SCH (13:42)
[2020-02-15] MEDS: ASPIRIN EC 81 MG TABLET PO SCH (21:23)
[2020-02-15] MEDS: ENOXAPARIN 40 MG/0.4 ML SYRINGE SUBCUT SCH (21:23)
[2020-02-15] MEDS: SIMVASTATIN 20 MG TABLET PO SCH (21:23)
[2020-02-16] MEDS: INSULIN LISPRO 100 UNIT/ML SUBCUT SCH ×5 (01:16→21:23)
[2020-02-16] MEDS: ALBUTEROL INHALER 18 GM INH SCH ×6 (02:43→23:30)
[2020-02-16 06:21] LABS: Basophils % 0.1 % (0.0-0.8); Hematocrit 36.8 VOL% (35.7-47.0); Hemoglobin 12.4 GM/DL (12.0-16.0); Immature Granulocytes % 2.2 %; Immature Granulocytes Absolute 0.24 #; Lymphocytes # 0.4 10*3/uL (1.4-4.0); Lymphocytes % 3.8 % (21.3-54.2); Mean Corpuscular HGB Conc 33.7 GM/DL (32-36); Mean Corpuscular Volume 86.4 FL (87-102); Monocytes % 3.5 % (1.7-12.7); Neutrophils % 90.4 % (38.7-73.9); Platelet Count 251 T/CUMM (130-400); Red Blood Count 4.26 MC/CUMM (3.8-5.5); Red Cell Distribution Width 12.5 % (9.3-17.3)
[2020-02-16 06:44] LABS: Band Neutrophils 1 % (0-10); Hypochromasia 1+; Lymphocytes 3 % (20-55); Microcytosis 1+; Platelet Estimate Adequate; Segmented Neutrophils 94 % (50-85); Total Cells Counted 100
[2020-02-16 06:45] LABS: Calcium 8.4 MG/DL (8.5-10.1); Osmolality,Calculated 288.8 MOS/KG (273-304)
[2020-02-16] MEDS: methylPREDNISolone SOD SUC 40 MG/1 ML VIAL IV SCH ×3 (09:04→21:23)
[2020-02-16] MEDS: ASCORBIC ACID 500 MG TABLET PO SCH ×2 (09:05→21:23)
[2020-02-16] MEDS: METOPROLOL TARTRATE 25 MG TABLET PO SCH ×2 (09:05→21:23)
[2020-02-16] MEDS: AZELASTINE NASAL 137 MCG/SPRAY 30 ML BOTTLE BOTH NARES SCH ×2 (09:06→21:23)
[2020-02-16] MEDS: ZINC SULFATE 220 MG CAPSULE PO SCH (09:06)
[2020-02-16] MEDS: ESCITALOPRAM 10 MG TABLET PO SCH (09:06)
[2020-02-16] MEDS: LEVOTHYROXINE 88 MCG TABLET PO SCH (09:06)
[2020-02-16] MEDS: amLODIPine 5 MG TABLET PO SCH ×2 (09:06→21:23)
[2020-02-16] MEDS: PANTOPRAZOLE 40 MG TABLET PO SCH (09:06)
[2020-02-16] MEDS: MELOXICAM 7.5 MG TABLET PO SCH (09:06)
[2020-02-16] MEDS: MONTELUKAST 10 MG TABLET PO SCH (09:06)
[2020-02-16] MEDS: CETIRIZINE 10 MG TABLET PO SCH (09:06)
[2020-02-16] MEDS: AZITHROMYCIN INJ 500 MG in SODIUM CHLORIDE 0.9% 250 ML IV SCH (11:53)
[2020-02-16] MEDS: ENOXAPARIN 40 MG/0.4 ML SYRINGE SUBCUT SCH (21:23)
[2020-02-16] MEDS: ASPIRIN EC 81 MG TABLET PO SCH (21:23)
[2020-02-16] MEDS: SIMVASTATIN 20 MG TABLET PO SCH (21:23)
[2020-02-16] MEDS: ZALEPLON 5 MG CAPSULE PO PRN (21:25)
[2020-02-17] MEDS: ALBUTEROL INHALER 18 GM INH SCH ×5 (03:40→18:26)
[2020-02-17] MEDS: methylPREDNISolone SOD SUC 40 MG/1 ML VIAL IV SCH ×2 (06:07→20:56)
[2020-02-17 06:09] LABS: Basophils % 0.1 % (0.0-0.8); Hematocrit 35.8 VOL% (35.7-47.0); Hemoglobin 12.2 GM/DL (12.0-16.0); Immature Granulocytes % 2.4 %; Immature Granulocytes Absolute 0.27 #; Lymphocytes # 0.5 10*3/uL (1.4-4.0); Lymphocytes % 4.4 % (21.3-54.2); Mean Corpuscular HGB Conc 34.1 GM/DL (32-36); Mean Corpuscular Volume 85.4 FL (87-102); Mean Platelet Volume 10.5 FL (9.6-12.0); Monocytes % 3.6 % (1.7-12.7); Neutrophils % 89.5 % (38.7-73.9); Platelet Count 258 T/CUMM (130-400); Red Blood Count 4.19 MC/CUMM (3.8-5.5); Red Cell Distribution Width 12.6 % (9.3-17.3); White Blood Count 11.1 T/CUMM (4-12)
[2020-02-17 06:28] LABS: Calcium 7.7 MG/DL (8.5-10.1)
[2020-02-17 06:48] LABS: Band Neutrophils 3 % (0-10); Lymphocytes 6 % (20-55); Platelet Estimate Normal; Segmented Neutrophils 89 % (50-85); Total Cells Counted 100
[2020-02-17 06:49] LABS: Hypochromasia Slight
[2020-02-17] MEDS ORDERED: ENOXAPARIN 40 MG/0.4 ML SYRINGE SUBCUT SCH (09:30)
[2020-02-17] MEDS: MONTELUKAST 10 MG TABLET PO SCH (09:40)
[2020-02-17] MEDS: ESCITALOPRAM 10 MG TABLET PO SCH (09:40)
[2020-02-17] MEDS: PANTOPRAZOLE 40 MG TABLET PO SCH (09:40)
[2020-02-17] MEDS: MELOXICAM 7.5 MG TABLET PO SCH (09:40)
[2020-02-17] MEDS: CETIRIZINE 10 MG TABLET PO SCH (09:40)
[2020-02-17] MEDS: LEVOTHYROXINE 88 MCG TABLET PO SCH (09:40)
[2020-02-17] MEDS: ZINC SULFATE 220 MG CAPSULE PO SCH (09:40)
[2020-02-17] MEDS: AZELASTINE NASAL 137 MCG/SPRAY 30 ML BOTTLE BOTH NARES SCH ×2 (09:40→20:58)
[2020-02-17] MEDS: METOPROLOL TARTRATE 25 MG TABLET PO SCH ×2 (09:40→20:56)
[2020-02-17] MEDS: amLODIPine 5 MG TABLET PO SCH ×2 (09:40→20:55)
[2020-02-17] MEDS: ASCORBIC ACID 500 MG TABLET PO SCH ×2 (09:40→20:55)
[2020-02-17] MEDS: INSULIN LISPRO 100 UNIT/ML SUBCUT SCH ×4 (09:40→20:57)
[2020-02-17] MEDS ORDERED: FUROSEMIDE 40 MG/4 ML VIAL IV ONE (11:26)
[2020-02-17] MEDS: APIXABAN 5 MG TABLET PO SCH ×2 (12:51→20:55)
[2020-02-17] MEDS: SIMVASTATIN 20 MG TABLET PO SCH (20:55)
[2020-02-17] MEDS: ASPIRIN EC 81 MG TABLET PO SCH (20:55)
[2020-02-18] MEDS: ALBUTEROL INHALER 18 GM INH SCH ×6 (00:15→20:43)
[2020-02-18] MEDS: methylPREDNISolone SOD SUC 40 MG/1 ML VIAL IV SCH ×2 (09:25→20:39)
[2020-02-18] MEDS: MONTELUKAST 10 MG TABLET PO SCH (09:25)
[2020-02-18] MEDS: CETIRIZINE 10 MG TABLET PO SCH (09:25)
[2020-02-18] MEDS: METOPROLOL TARTRATE 25 MG TABLET PO SCH ×2 (09:25→20:36)
[2020-02-18] MEDS: AZELASTINE NASAL 137 MCG/SPRAY 30 ML BOTTLE BOTH NARES SCH ×2 (09:25→20:42)
[2020-02-18] MEDS: amLODIPine 5 MG TABLET PO SCH ×2 (09:25→20:37)
[2020-02-18] MEDS: LEVOTHYROXINE 88 MCG TABLET PO SCH (09:25)
[2020-02-18] MEDS: PANTOPRAZOLE 40 MG TABLET PO SCH (09:25)
[2020-02-18] MEDS: ESCITALOPRAM 10 MG TABLET PO SCH (09:25)
[2020-02-18] MEDS: MELOXICAM 7.5 MG TABLET PO SCH (09:25)
[2020-02-18] MEDS: ASCORBIC ACID 500 MG TABLET PO SCH ×2 (09:25→20:37)
[2020-02-18] MEDS: INSULIN LISPRO 100 UNIT/ML SUBCUT SCH ×4 (09:25→20:41)
[2020-02-18] MEDS: APIXABAN 5 MG TABLET PO SCH ×2 (09:25→20:37)
[2020-02-18] MEDS: ZINC SULFATE 220 MG CAPSULE PO SCH (09:25)
[2020-02-18] MEDS: SPIRONOLACTONE 25 MG TABLET PO SCH (13:58)
[2020-02-18] MEDS: ASPIRIN EC 81 MG TABLET PO SCH (20:36)
[2020-02-18] MEDS: SIMVASTATIN 20 MG TABLET PO SCH (20:37)
[2020-02-19] MEDS: ALBUTEROL INHALER 18 GM INH SCH ×7 (00:17→22:40)
[2020-02-19 05:29] LABS: Basophils % 0.1 % (0.0-0.8); Hematocrit 36.1 VOL% (35.7-47.0); Hemoglobin 12.1 GM/DL (12.0-16.0); Immature Granulocytes % 1.7 %; Immature Granulocytes Absolute 0.22 #; Lymphocytes # 0.4 10*3/uL (1.4-4.0); Lymphocytes % 3.3 % (21.3-54.2); Mean Corpuscular HGB Conc 33.5 GM/DL (32-36); Mean Platelet Volume 10.9 FL (9.6-12.0); Monocytes % 2.4 % (1.7-12.7); Neutrophils % 92.5 % (38.7-73.9); Platelet Count 252 T/CUMM (130-400); Red Cell Distribution Width 12.7 % (9.3-17.3); White Blood Count 12.8 T/CUMM (4-12)
[2020-02-19 05:55] LABS: Albumin 2.3 G/DL (3.4-5.0); Bilirubin,Total 1.1 MG/DL (0.2-1.0); Calcium 7.8 MG/DL (8.5-10.1); Osmolality,Calculated 284.7 MOS/KG (273-304); Total Protein 5.2 G/DL (6.4-8.3)
[2020-02-19 06:44] LABS: Anisocytosis 1+; Band Neutrophils 7 % (0-10); Lymphocytes 5 % (20-55); Platelet Estimate Normal; Segmented Neutrophils 86 % (50-85); Total Cells Counted 100
[2020-02-19] MEDS: INSULIN LISPRO 100 UNIT/ML SUBCUT SCH ×4 (09:26→21:03)
[2020-02-19] MEDS: APIXABAN 5 MG TABLET PO SCH ×2 (09:28→21:02)
[2020-02-19] MEDS: AZELASTINE NASAL 137 MCG/SPRAY 30 ML BOTTLE BOTH NARES SCH ×2 (09:28→21:04)
[2020-02-19] MEDS: SPIRONOLACTONE 25 MG TABLET PO SCH (09:28)
[2020-02-19] MEDS: amLODIPine 5 MG TABLET PO SCH ×2 (09:29→21:02)
[2020-02-19] MEDS: MONTELUKAST 10 MG TABLET PO SCH (09:29)
[2020-02-19] MEDS: methylPREDNISolone SOD SUC 40 MG/1 ML VIAL IV SCH ×2 (09:29→21:10)
[2020-02-19] MEDS: ESCITALOPRAM 10 MG TABLET PO SCH (09:29)
[2020-02-19] MEDS: PANTOPRAZOLE 40 MG TABLET PO SCH (09:29)
[2020-02-19] MEDS: MELOXICAM 7.5 MG TABLET PO SCH (09:29)
[2020-02-19] MEDS: METOPROLOL TARTRATE 25 MG TABLET PO SCH ×2 (09:29→21:02)
[2020-02-19] MEDS: ASCORBIC ACID 500 MG TABLET PO SCH ×2 (09:30→21:09)
[2020-02-19] MEDS: ZINC SULFATE 220 MG CAPSULE PO SCH (09:30)
[2020-02-19] MEDS: LEVOTHYROXINE 88 MCG TABLET PO SCH (09:30)
[2020-02-19] MEDS: CETIRIZINE 10 MG TABLET PO SCH (09:30)
[2020-02-19] MEDS ORDERED: FUROSEMIDE 40 MG/4 ML VIAL IV ONE (13:15)
[2020-02-19] MEDS: ZALEPLON 5 MG CAPSULE PO PRN (21:02)
[2020-02-19] MEDS: SIMVASTATIN 20 MG TABLET PO SCH (21:02)
[2020-02-19] MEDS: ASPIRIN EC 81 MG TABLET PO SCH (21:03)
[2020-02-20] MEDS: ALBUTEROL INHALER 18 GM INH SCH ×7 (02:50→23:21)
[2020-02-20] MEDS: AZELASTINE NASAL 137 MCG/SPRAY 30 ML BOTTLE BOTH NARES SCH ×2 (08:02→21:16)
[2020-02-20] MEDS: ESCITALOPRAM 10 MG TABLET PO SCH (08:02)
[2020-02-20] MEDS: APIXABAN 5 MG TABLET PO SCH ×2 (08:02→21:12)
[2020-02-20] MEDS: INSULIN LISPRO 100 UNIT/ML SUBCUT SCH ×4 (08:02→21:21)
[2020-02-20] MEDS: SPIRONOLACTONE 25 MG TABLET PO SCH (08:02)
[2020-02-20] MEDS: methylPREDNISolone SOD SUC 40 MG/1 ML VIAL IV SCH ×2 (08:03→21:14)
[2020-02-20] MEDS: LEVOTHYROXINE 88 MCG TABLET PO SCH (08:03)
[2020-02-20] MEDS: MONTELUKAST 10 MG TABLET PO SCH (08:03)
[2020-02-20] MEDS: MELOXICAM 7.5 MG TABLET PO SCH (08:03)
[2020-02-20] MEDS: METOPROLOL TARTRATE 25 MG TABLET PO SCH ×2 (08:03→21:13)
[2020-02-20] MEDS: amLODIPine 5 MG TABLET PO SCH ×2 (08:03→21:13)
[2020-02-20] MEDS: PANTOPRAZOLE 40 MG TABLET PO SCH (08:03)
[2020-02-20] MEDS: ZINC SULFATE 220 MG CAPSULE PO SCH (08:04)
[2020-02-20] MEDS: ASCORBIC ACID 500 MG TABLET PO SCH ×2 (08:04→21:12)
[2020-02-20] MEDS: CETIRIZINE 10 MG TABLET PO SCH (08:04)
[2020-02-20] MEDS: SIMVASTATIN 20 MG TABLET PO SCH (21:12)
[2020-02-20] MEDS: ASPIRIN EC 81 MG TABLET PO SCH (21:13)
[2020-02-21] MEDS: ALBUTEROL INHALER 18 GM INH SCH ×7 (03:17→22:24)
[2020-02-21] MEDS: METOPROLOL TARTRATE 25 MG TABLET PO SCH ×2 (08:04→20:49)
[2020-02-21] MEDS: SPIRONOLACTONE 25 MG TABLET PO SCH (08:04)
[2020-02-21] MEDS: AZELASTINE NASAL 137 MCG/SPRAY 30 ML BOTTLE BOTH NARES SCH ×2 (08:04→20:50)
[2020-02-21] MEDS: ESCITALOPRAM 10 MG TABLET PO SCH (08:04)
[2020-02-21] MEDS: MELOXICAM 7.5 MG TABLET PO SCH (08:04)
[2020-02-21] MEDS: APIXABAN 5 MG TABLET PO SCH ×2 (08:04→20:49)
[2020-02-21] MEDS: CETIRIZINE 10 MG TABLET PO SCH (08:05)
[2020-02-21] MEDS: MONTELUKAST 10 MG TABLET PO SCH (08:05)
[2020-02-21] MEDS: amLODIPine 5 MG TABLET PO SCH ×2 (08:05→20:49)
[2020-02-21] MEDS: ZINC SULFATE 220 MG CAPSULE PO SCH (08:05)
[2020-02-21] MEDS: ASCORBIC ACID 500 MG TABLET PO SCH ×2 (08:05→20:49)
[2020-02-21] MEDS: PANTOPRAZOLE 40 MG TABLET PO SCH (08:05)
[2020-02-21] MEDS: LEVOTHYROXINE 88 MCG TABLET PO SCH (08:05)
[2020-02-21] MEDS: methylPREDNISolone SOD SUC 40 MG/1 ML VIAL IV SCH ×2 (08:05→20:50)
[2020-02-21] MEDS: INSULIN LISPRO 100 UNIT/ML SUBCUT SCH ×4 (09:11→20:51)
[2020-02-21] MEDS: ASPIRIN EC 81 MG TABLET PO SCH (20:49)
[2020-02-21] MEDS: SIMVASTATIN 20 MG TABLET PO SCH (20:49)
[2020-02-22] MEDS: ALBUTEROL INHALER 18 GM INH SCH ×5 (02:05→18:42)
[2020-02-22 06:29] LABS: Calcium 7.8 MG/DL (8.5-10.1); Osmolality,Calculated 280.7 MOS/KG (273-304)
[2020-02-22] MEDS: INSULIN LISPRO 100 UNIT/ML SUBCUT SCH ×4 (07:58→22:10)
[2020-02-22] MEDS: MONTELUKAST 10 MG TABLET PO SCH (09:37)
[2020-02-22] MEDS: amLODIPine 5 MG TABLET PO SCH ×2 (09:37→20:18)
[2020-02-22] MEDS: methylPREDNISolone SOD SUC 40 MG/1 ML VIAL IV SCH ×2 (09:37→20:18)
[2020-02-22] MEDS: MELOXICAM 7.5 MG TABLET PO SCH (09:37)
[2020-02-22] MEDS: LEVOTHYROXINE 88 MCG TABLET PO SCH (09:37)
[2020-02-22] MEDS: APIXABAN 5 MG TABLET PO SCH ×2 (09:37→20:17)
[2020-02-22] MEDS: METOPROLOL TARTRATE 25 MG TABLET PO SCH ×3 (09:37→20:28)
[2020-02-22] MEDS: ESCITALOPRAM 10 MG TABLET PO SCH (09:37)
[2020-02-22] MEDS: PANTOPRAZOLE 40 MG TABLET PO SCH (09:37)
[2020-02-22] MEDS: AZELASTINE NASAL 137 MCG/SPRAY 30 ML BOTTLE BOTH NARES SCH ×2 (09:37→20:17)
[2020-02-22] MEDS: ZINC SULFATE 220 MG CAPSULE PO SCH (09:37)
[2020-02-22] MEDS: ASCORBIC ACID 500 MG TABLET PO SCH ×2 (10:23→20:18)
[2020-02-22] MEDS: CETIRIZINE 10 MG TABLET PO SCH (10:23)
[2020-02-22] MEDS: ASPIRIN EC 81 MG TABLET PO SCH (20:17)
[2020-02-22] MEDS: SIMVASTATIN 20 MG TABLET PO SCH (20:18)
[2020-02-23] MEDS: ALBUTEROL INHALER 18 GM INH SCH ×7 (00:23→23:47)
[2020-02-23 06:32] LABS: Basophils % 0.1 % (0.0-0.8); Hematocrit 36.9 VOL% (35.7-47.0); Hemoglobin 12.4 GM/DL (12.0-16.0); Immature Granulocytes % 1.6 %; Immature Granulocytes Absolute 0.16 #; Lymphocytes # 0.4 10*3/uL (1.4-4.0); Lymphocytes % 3.8 % (21.3-54.2); Mean Corpuscular HGB Conc 33.6 GM/DL (32-36); Mean Corpuscular Volume 86.8 FL (87-102); Mean Platelet Volume 10.4 FL (9.6-12.0); Monocytes % 1.1 % (1.7-12.7); Neutrophils % 93.4 % (38.7-73.9); Platelet Count 174 T/CUMM (130-400); Red Blood Count 4.25 MC/CUMM (3.8-5.5); Red Cell Distribution Width 13.1 % (9.3-17.3); White Blood Count 9.7 T/CUMM (4-12)
[2020-02-23 06:55] LABS: Hypochromasia 1+; Lymphocytes 3 % (20-55); Microcytosis 1+; Ovalocytes Slight; Platelet Estimate Adequate; Segmented Neutrophils 95 % (50-85); Total Cells Counted 100
[2020-02-23 07:01] LABS: Calcium 7.9 MG/DL (8.5-10.1); Osmolality,Calculated 284.7 MOS/KG (273-304)
[2020-02-23] MEDS: APIXABAN 5 MG TABLET PO SCH ×2 (09:48→20:50)
[2020-02-23] MEDS: PANTOPRAZOLE 40 MG TABLET PO SCH (09:48)
[2020-02-23] MEDS: INSULIN LISPRO 100 UNIT/ML SUBCUT SCH ×4 (09:48→21:25)
[2020-02-23] MEDS: amLODIPine 5 MG TABLET PO SCH ×2 (09:48→20:50)
[2020-02-23] MEDS: MONTELUKAST 10 MG TABLET PO SCH (09:48)
[2020-02-23] MEDS: METOPROLOL TARTRATE 25 MG TABLET PO SCH ×2 (09:48→20:50)
[2020-02-23] MEDS: ESCITALOPRAM 10 MG TABLET PO SCH (09:48)
[2020-02-23] MEDS: MELOXICAM 7.5 MG TABLET PO SCH (09:48)
[2020-02-23] MEDS: AZELASTINE NASAL 137 MCG/SPRAY 30 ML BOTTLE BOTH NARES SCH ×2 (09:48→20:49)
[2020-02-23] MEDS: ZINC SULFATE 220 MG CAPSULE PO SCH (09:49)
[2020-02-23] MEDS: LEVOTHYROXINE 88 MCG TABLET PO SCH (09:49)
[2020-02-23] MEDS: ASCORBIC ACID 500 MG TABLET PO SCH ×2 (09:49→20:50)
[2020-02-23] MEDS: CETIRIZINE 10 MG TABLET PO SCH (09:49)
[2020-02-23] MEDS: methylPREDNISolone SOD SUC 40 MG/1 ML VIAL IV SCH (09:49)
[2020-02-23] MEDS: ASPIRIN EC 81 MG TABLET PO SCH (20:50)
[2020-02-23] MEDS: SIMVASTATIN 20 MG TABLET PO SCH (20:50)
[2020-02-24 05:13] LABS: Basophils % 0.1 % (0.0-0.8); Eosinophils # 0.1 10*3/uL (0.0-0.87); Eosinophils % 0.6 % (0.00-10.9); Hematocrit 37.3 VOL% (35.7-47.0); Hemoglobin 12.6 GM/DL (12.0-16.0); Immature Granulocytes % 1.3 %; Immature Granulocytes Absolute 0.15 #; Lymphocytes % 8.4 % (21.3-54.2); Mean Corpuscular HGB Conc 33.8 GM/DL (32-36); Mean Corpuscular Volume 87.6 FL (87-102); Mean Platelet Volume 10.7 FL (9.6-12.0); Monocytes % 3.3 % (1.7-12.7); Neutrophils % 86.3 % (38.7-73.9); Platelet Count 159 T/CUMM (130-400); Red Blood Count 4.26 MC/CUMM (3.8-5.5); Red Cell Distribution Width 13.4 % (9.3-17.3); White Blood Count 11.9 T/CUMM (4-12)
[2020-02-24 05:55] LABS: Calcium 7.7 MG/DL (8.5-10.1); Osmolality,Calculated 281.7 MOS/KG (273-304)
[2020-02-24] MEDS: INSULIN LISPRO 100 UNIT/ML SUBCUT SCH ×2 (08:18→12:08)
[2020-02-24] MEDS ORDERED: APIXABAN 5 MG TABLET PO SCH (09:00)
[2020-02-24] MEDS ORDERED: predniSONE 20 MG TABLET PO SCH (09:00)
[2020-02-24] MEDS: ASCORBIC ACID 500 MG TABLET PO SCH (10:34)
[2020-02-24] MEDS: ESCITALOPRAM 10 MG TABLET PO SCH (10:34)
[2020-02-24] MEDS: MONTELUKAST 10 MG TABLET PO SCH (10:35)
[2020-02-24] MEDS: MELOXICAM 7.5 MG TABLET PO SCH (10:35)
[2020-02-24] MEDS: LEVOTHYROXINE 88 MCG TABLET PO SCH (10:35)
[2020-02-24] MEDS: METOPROLOL TARTRATE 25 MG TABLET PO SCH (10:35)
[2020-02-24] MEDS: amLODIPine 5 MG TABLET PO SCH (10:37)
[2020-02-24] MEDS: CETIRIZINE 10 MG TABLET PO SCH (10:37)
[2020-02-24] MEDS: PANTOPRAZOLE 40 MG TABLET PO SCH (10:37)
[2020-02-24] MEDS: ZINC SULFATE 220 MG CAPSULE PO SCH (10:37)
[2020-02-24] MEDS: AZELASTINE NASAL 137 MCG/SPRAY 30 ML BOTTLE BOTH NARES SCH (10:39)
[2020-02-24] MEDS ORDERED: ALBUTEROL 2.5 MG/3 ML NEB RESP TX SCH (11:00)
[2020-02-24 12:08] VITALS: BP 144/67
== END 2020-02-24 14:25 | disposition swing bed (61) | DRG 177 ==
LOC: N.ED 15:43 → SUATTDRO 22:08 → N.EDINP 22:08 → N.2E 23:32 → N.3E 02-23 13:50
PROVIDERS: ADMIT Internal Medicine; ATTEND Internal Medicine